=== PATIENT | female | born 1955 | race Caucasian/White ===

== ENCOUNTER 2017-07-11 12:00 | Inpatient (IN) ==
--- NOTE | 2017-07-11 12:29 | Emergency Department Note ---
Disposition Clinical Impression: Degenerative disc disease, lumbar Back pain Qualifiers: Back pain location: low back pain Chronicity: acute Back pain laterality: right Sciatica presence: unspecified whether sciatica present Qualified Code(s) : M54.5 - Low back pain Disposition: Admitted As Inpatient Condition: Fair Time of Disposition: 12:32 Back Pain HPI - General Chief Complaint: ED Back Pain/Injury Stated Complaint: BACK PAIN Time Seen by Provider: 07/11/17 12:13 Source: patient Limitations: no limitations Nursing Notes Reviewed: Yes Vital Signs Reviewed: Yes - History of Present Illness HPI Narrative: Nontoxic 61-year-old female presents for low back pain the radiates into the right lower extremity. Pain began 3-4 days ago and has gradually worsened. The pain is to the point that "I have fallen several times because it hurts so bad". She also c/o 3-4 months of progressively worsening difficulty initiating a stream of urine. She also c/o a degree of saddle anesthesia. She denies any loss of bowel or bladder control. She has taken her regularly prescribed percocet at home without relief of symptoms. - Related Data Previous Rx's Medication Instructions Recorded Diazepam [Valium] 5 mg PO TID PRN #7 tablet 04/08/15 Allergies Allergy/AdvReac Type Severity Reaction Status Date / Time sulfamethoxazole Allergy Seizure Verified 04/08/15 20:31 [From Bactrim] trimethoprim [From Bactrim] Allergy Seizure Verified 04/08/15 20:32 All systems ED: reviewed and negative except as stated. Constitutional: Denies: fever, chills, weakness, weight change Eyes: Denies: eye pain, eye discharge, vision change ENT ED: Denies: ear pain, throat pain, dental pain, hearing loss, epistaxis, congestion, dysphagia Cardiovascular: Denies: chest pain, palpitations, dyspnea on exertion, edema, syncope Respiratory: Denies: cough, dyspnea, wheezes, hemoptysis, stridor Gastrointestinal: Denies: abdominal pain, nausea, vomiting, diarrhea, constipation, hematemesis, melena, hematochezia Genitourinary: Reports: as per HPI, other (urinary retention). Denies: dysuria , frequency, hematuria, discharge Musculoskeletal: Reports: as per HPI, back pain. Denies: neck pain, arthralgia , myalgia Integumentary: Denies: rash, abrasion, lesions Neurological: Reports: as per HPI, paresthesias (inner thighs). Denies: headache, weakness, numbness, confusion, abnormal gait, vertigo Psychiatric: Denies: anxiety, depression, suicidal thoughts, homicidal thoughts , auditory hallucinations, visual hallucinations Endocrine: Denies: fatigue Hematological/Lymphatic: Denies: easy bleeding, easy bruising Allergic/Immunologic: Denies: facial swelling, urticaria Past Medical History - Past Medical History Attestation: Yes The following information was validated with the patient. Source: patient, nursing notes reviewed Medical history: Reports: COPD, diabetes, hypertension Surgical history: Reports: appendectomy, cholecystectomy, hysterectomy Psychiatric history: Reports: depression - Social History Smoking Status: Never smoker Smokeless Tobacco Status: No Alcohol use: Reports: none Drug use: Reports: none Physical Exam - General Limitations: no limitations General appearance: alert - Head Head exam: atraumatic, normocephalic, normal inspection - Eye Eye exam: Present: normal appearance, PERRL, EOMI. Absent: nystagmus - ENT ENT exam: mucous membranes moist - Neck Neck exam: Present: normal inspection, full ROM, trachea midline - Chest Chest inspection: Present: normal inspection, symmetric chest wall rise - Abdominal Exam Abdominal exam: Present: soft, Non-Tender - Extremities Exam Extremities exam: Present: normal inspection, full ROM. Absent: tenderness, pedal edema - Expanded Lower Extremity Exam Neurovascular/Tendon exam: Present: normal capillary refill. Absent: pulse deficit, tendon deficit, extremity cold to touch - Back Exam Back exam: Present: tenderness, paraspinal tenderness (right lumbar paraspinal musculature), vertebral tenderness (lumbar), sciatic notch tenderness (R), straight leg raise (R), straight leg raise (L). Absent: full ROM (painful ROM from lumbar spine), CVA tenderness (R), CVA tenderness (L), muscle spasm, sciatic notch tenderness (L) - Neurological Exam Neurological exam: Present: alert, oriented X3 - Expanded Neurological Exam Motor strength - LUE: 5/5 Motor strength - RUE: 5/5 Motor strength - LLE: 5/5 Motor strength - RLE: 5/5 DTR: patellar (L): 1+, patellar (R): 1+ Coma Scale Eye Opening: Spontaneous Coma Scale Motor Response: Obeys Commands Coma Scale Verbal Response: Oriented Coma Scale Total: 15 - Psychiatric Psychiatric exam: Present: normal affect, normal mood - Skin Skin exam: Present: warm, dry, intact, normal color. Absent: rash Course - Reevaluation(s) Reevaluation #1: 61-year-old female who comes in with lower back pain radiation to right leg that is severe in nature. She has shows some difficulty initiating urine stream and also complained of some anesthesia perineal region. Patient has a spinal cord stimulator is not able to have an MRI, CT scan does show disc bulges at L3- 4 and 45. No significant central stenosis. Patient will be admitted of spine surgery evaluation. Saturation for a myelogram. Time: 14:21 Reevaluation #2: Bladder scan shows 15 mL of urine Time: 14:47 - Consultations Consultation #1: Discussed with Dr. Roque were going to admit to the hospitalist with consult to him. Time: 14:10 Consultation #2: Discussed with Dr. Bell, admit. Time: 14:21 Vital Signs Temperature 97.3 F L 07/11/17 12:02 Pulse Rate 76 07/11/17 12:02 Respiratory Rate 18 07/11/17 12:02 Blood Pressure 170/79 07/11/17 12:02 O2 Sat by Pulse Oximetry 100 07/11/17 12:02 Temperature 97.3 F L 07/11/17 12:02 Pulse Rate 73 07/11/17 14:30 Respiratory Rate 18 07/11/17 14:30 Blood Pressure 137/71 07/11/17 14:30 O2 Sat by Pulse Oximetry 98 07/11/17 14:30 Oxygen Delivery Oxygen Delivery Room Air Back Pain/Injury - Medical Records Medical records reviewed: Yes I reviewed the patient's medical records. - Lab Data Result diagrams: 07/11/17 14:35 Lab Results 07/11/17 Range/Units 14:35 WBC 6.7 (4.3-11.1) K/mcL RBC 4.65 (3.82-4.97) M/mcL Hgb 12.2 (11.5-15.4) g/dL Hct 37.7 (35.3-44.9) % MCV 81.1 L (83.0-100.0) fL MCH 26.2 L (28.0-33.3) pg MCHC 32.4 (31.6-35.5) g/dL RDW 14.3 (11.5-14.5) % Plt Count 143 (140-400) K/mcL MPV 10.4 (9.4-12.4) fL Immature Gran % 0.3 (0-4) % Seg Neutrophils % 68.1 % Lymphocytes % 23.7 % Monocytes % 4.9 % Eosinophils % 2.7 % Basophils % 0.3 % Neutrophils # 4.6 (1.6-8.9) K/mcL Lymphocytes # 1.6 (0.6-4.6) K/mcL Monocytes # 0.3 (0.0-1.3) K/mcL Eosinophils # 0.2 (0.0-0.6) K/mcL Basophils # 0.0 (0.0-0.2) K/mcL - Radiology Data Radiology results reviewed: Yes I reviewed the patient's radiology results. Lumbar Spine CT 07/11/17 12:32 IMPRESSION: Mild multilevel disc degenerative changes of the lumbar spine, most prominent at L3-4 and L4-5. No evidence of severe spinal canal stenosis. Mild bilateral neural foraminal narrowing noted at L3-4 and L4-5, as described above. No acute fracture or malalignment. Transitional anatomy with sacralization of L5. Spinal stimulator leads are noted. D/ / 07/11/2017 13:28:55 Justin Mendoza MD / [email or web address] Interpreting Provider: Justin Mendoza MD S.B.A.RJacquelin - S.B.A.Madeline Situation: Demographics, MOA Background: Presenting Complaint, Relevant PMH, Meds, & Allergies Assessment: Vital Signs, Course and respsone to treatment, Exam Concerns, Patient/Family Expectation, Pertinant Lab Results, Outstanding Labs Recommendation: Barrier(s) to disposition, Recommendation based on pending studies, treatments, or consults S.B.AFord Report Given to: Dr. Sary Wadsworth Repor Time: 12:31 Attestation Statement - Attestation Attestation: For this encounter, I have reviewed the LUNCHROOM ATTENDANT or PA documentation, treatment plan, and medical decision making; and I have had face to face time with this patient. Patient presents with lower back pain with radiation the right leg. States her left right leg gives out at times. She complains of difficulty initiating urine stream. Some saddle anesthesia. Patient does have a spinal cord stimulator which prevents MRI. Physical examination her strength appears to be intact. CT scan of the back shows degenerative disc disease with some mild stenosis at L3-4 L4-5. Consultation obtained with back surgery who will see the patient in consult will admit patient for further evaluation.
[2017-07-11] MEDS ORDERED: Ketorolac 15 MG/ML VIAL IM ONE (12:36)
[2017-07-11] MEDS ORDERED: Orphenadrine 60 MG/2 ML VIAL IM ONE (12:36)
[2017-07-11] MEDS ORDERED: Naloxone 0.4 MG/ML INJ IVP PRN (14:26)
[2017-07-11 14:43] LABS: Basophils % 0.3 %; Eosinophils # 0.2 K/mcL (0.0-0.6); Eosinophils % 2.7 %; Hematocrit 37.7 % (35.3-44.9); Hemoglobin 12.2 g/dL (11.5-15.4); Immature Granulocytes % 0.3 % (0-4); Lymphocytes # 1.6 K/mcL (0.6-4.6); Lymphocytes % 23.7 %; Mean Corpuscular HGB Conc 32.4 g/dL (31.6-35.5); Mean Corpuscular Hemoglobin 26.2 pg (28.0-33.3); Mean Corpuscular Volume 81.1 fL (83.0-100.0); Mean Platelet Volume 10.4 fL (9.4-12.4); Monocytes # 0.3 K/mcL (0.0-1.3); Monocytes % 4.9 %; Neutrophils # 4.6 K/mcL (1.6-8.9); Platelet Count 143 K/mcL (140-400); Red Blood Count 4.65 M/mcL (3.82-4.97); Red Cell Distribution Width 14.3 % (11.5-14.5); Segmented Neutrophils % 68.1 %
[2017-07-11 14:54] LABS: Calcium 8.7 mg/dL (8.6-10.3); Carbon Dioxide 30 mEq/L (23-29); Chloride 105 mEq/L (98-107); Potassium 3.8 mEq/L (3.5-5.1); Sodium 140 mEq/L (136-145)
[2017-07-11 15:00] LABS: BUN/Creatinine Ratio 16 (6-26); Blood Urea Nitrogen 12 mg/dL (8-23); Glucose 183 mg/dL (70-105); Osmolality,Calculated 294 (280-300); eGFR For African Americans > 60 (> 60); eGFR For Non-African Americans > 60 (> 60)
[2017-07-11] MEDS ORDERED: *HR* Dextrose 50 % in Water (Syg) 50 ML SYRINGE IVP PRN (15:03)
[2017-07-11] MEDS ORDERED: Dextrose Gel 15 GM/37.5 ML TUBE PO PRN ×2 (15:03)
[2017-07-11] MEDS ORDERED: D5% in Water 1,000 ML IVC PRN (15:03)
--- NOTE | 2017-07-11 15:12 | Internal Med History&Physical ---
Date of Encounter: 07/11/17 Time of Encounter: 15:08 Assessment and Plan (1) Back pain Current visit: Yes Status: Acute Admit the patient to the hospitalist service. No urinary or bowel incontinence. Good rectal tone examination. Continue with pain control. Spoke to Dr. Roque who recommended against using steroids for now. Make the patient nothing by mouth in case of any surgical needs. Check an EKG for preop purposes. Check hemoglobin A1c, vitamin B12 levels, TSH. Qualifiers: Back pain location: low back pain Chronicity: acute Back pain laterality : right Sciatica presence: unspecified whether sciatica present Qualified Code(s): M54.5 - Low back pain (2) Degenerative disc disease, lumbar Current visit: Yes Status: Acute Plan is as above. (3) Hypertension Current visit: Yes Status: Acute Continue home meds. Blood pressure stable. Qualifiers: Hypertension type: essential hypertension Qualified Code(s): I10 - Essential (primary) hypertension (4) CAD (coronary artery disease) Current visit: Yes Status: Acute Continue cardiac meds. Hold aspirin and Plavix for now. Not sure if she is taking those but she tells me she does. Last the pharmacist to help us with medication list. We will hold those medications if she is on them for now. Continue the rest of the cardiac meds including the beta autumn. Qualifiers: Coronary Disease-Associated Artery/Lesion type: [place] artery [place] vs. transplanted heart: [place] heart Associated angina: without angina Qualified Code(s): I25.10 - Atherosclerotic heart disease of [place] coronary artery without angina pectoris (5) Diabetes mellitus Current visit: Yes Status: Acute We will put the patient on insulin sliding scale for now. Continue with Accu- Cheks. Check hemoglobin A1c. Qualifiers: Diabetes mellitus type: type 2 Diabetes mellitus complication status: without complication Diabetes mellitus technician terminal and repeater insulin use: with assisted use Qualified Code(s): E11.9 - Type 2 diabetes mellitus without complications ; Z79.4 - equipment operator intermodal yard (current) use of insulin; Z79.4 - [facility] (current) use of insulin; Z79.4 - equipment operator intermodal yard (current) use of insulin; Z79.4 - equipment operator intermodal yard ( current) use of insulin (6) DVT prophylaxis Current visit: Yes Status: Acute Heparin subcutaneous Internal Medicine - H&P: HPI Chief complaint: Back pain Admitted From: Home Plans for Post Hospital Care: Home History of present illness: Ms. Davis is a 61 year old female with a history of chronic back pain with a spinal stimulator device that she says is not working, hypertension, diabetes mellitus, coronary artery disease with no stents, and peripheral neuropathy who presented to us on 07/11/2017 with complaints of worsening back pain as well as feeling of weakness with some numbness and tingling mainly on the right lower extremity that is above baseline. The patient tells me that the pain is made better by leaning forward. She has noticed that the pain has started about 3-4 days ago with no triggering event. She has been able to hold her bowels. She has noticed that she is having difficulties initiating his urinary stream and she feels that she is not able to empty completely. At bedside bladder scan showed that she only had 15 mL. She denies any headache blurry vision nausea vomiting chest pain shortness of breath abdominal pain upper extremity weakness or numbness. When she presented to the emergency department she underwent a laboratory workup that was mostly unremarkable. She underwent a CT lumbar spine which showed mild multilevel disc degenerative changes that is most prominent at L3-L4 and L4-L5 levels. There is mild bilateral neural foraminal narrowing noted at L3-L4 and L4-L5. They did mention that there is a broad based disc bulge at those levels. The patient is being admitted to the hospitalist service with a consult to spinal/orthopedics. Past Med Surg Social Fam HX - Past Medical History Medical history: COPD, diabetes, hypertension Psychiatric history: depression - Past Surgical History Surgical History: appendectomy, cholecystectomy, hysterectomy - Social History Smoking Status: Never smoker Smokeless Tobacco Status: No Alcohol use: none Drug use: none Internal Medicine - H&P: Meds Aspirin Enteric Coated [Aspirin EC] 81 mg PO DAILY 07/11/17 [History] Cholecalciferol (Vitamin D3) [Vitamin D] 1,000 unit PO DAILY 07/11/17 [History] Exenatide Microspheres [Bydureon Pen] 2 mg SQ MO 07/11/17 [History] Insulin ASPART [Novolog Flexpen] 40 unit SQ TIDWM 07/11/17 [History] Insulin Degludec [Tresiba Flextouch U-200] 80 unit SQ QAM 07/11/17 [History] Isosorbide MONOnitrate (24 HR) [Imdur] 60 mg PO DAILY 07/11/17 [History] Metoprolol Tartrate [Metoprolol Tartrate] 100 mg PO BID 07/11/17 [History] Oxycodone HCl [Oxycodone HCl] 15 mg PO QID PRN 07/11/17 [History] Pantoprazole Sodium [Protonix] 40 mg PO DAILY 07/11/17 [History] Pregabalin [Lyrica] 150 mg PO TID 07/11/17 [History] Sertraline [Zoloft] 150 mg PO DAILY 07/11/17 [History] amLODIPine [Norvasc] 5 mg PO DAILY 07/11/17 [History] hydrOXYzine HCl [Hydroxyzine HCl] 25 mg PO TID 07/11/17 [History] metFORMIN [Glucophage] 1,000 mg PO BID 07/11/17 [History] 3 Allergy/AdvReac Type Severity Reaction Status Date / Time sulfamethoxazole Allergy Seizure Verified 04/08/15 20:31 [From Bactrim] trimethoprim [From Bactrim] Allergy Seizure Verified 04/08/15 20:32 All Systems PM: A 10-system review of systems was performed and is negative for pertinent findings except as documented above in the HPI. Review of systems: All systems reviewed are negative except as mentioned above - Constitutional Vitals: Temp Pulse Resp BP Pulse Ox 97.3 F L 73 18 137/71 98 07/11/17 12:02 07/11/17 14:30 07/11/17 14:30 07/11/17 14:30 07/11/17 14:30 Exam: GEN: NAD HEENT: AT, NC, No cyanosis, oral mucosa is moist, No JVD Lymphatics: No lymphadenoapthy Eyes: Extrocular muscles intact, anicteric CVS:RRR. S1, S2, No m/r/g RESP: CTAB ABD: Soft, NT, ND, +BS EXT: No edema, No rashes, 2+ DP NEURO: Cranial 2 through 12 are intact. The patient has a positive straight leg raise test on the right. She does have some sensory deficits with pinprick testing in the lower extremities from the feet elevated and knees bilaterally. More so on the right than it is on the left. She felt the pricks pressures. She has good rectal tone. Psych: Cooperative, Not anxious or depressed Internal Med - H&P Results - Labs CBC & Chem 7: 07/11/17 14:35 07/11/17 14:35
[2017-07-11] MEDS ORDERED: *HR* HYDROmorphone 2 MG TABLET PO PRN (15:23)
[2017-07-11] MEDS ORDERED: Baclofen 10 MG TABLET PO PRN (15:23)
[2017-07-11 15:33] LABS: Hemoglobin A1C 10.5 %
[2017-07-11] MEDS: Insulin LISPRO 300 UNITS/3 ML VIAL SQ SCH ×2 (17:30→23:33)
[2017-07-11] MEDS: Pregabalin 75 MG CAPSULE PO SCH (20:03)
[2017-07-11] MEDS: Metoprolol 100 MG TABLET PO SCH (20:03)
[2017-07-11] MEDS: *HR* OxyCODONE/APAP 10/325 TABLET PO PRN (20:03)
[2017-07-11] MEDS: hydrOXYzine pamoate 25 MG CAPSULE PO SCH (20:03)
[2017-07-11] MEDS: *HR* Heparin 5,000 UNIT/ML VIAL SQ SCH (23:24)
[2017-07-11] MEDS: Ketorolac 15 MG/ML VIAL IVP PRN (23:31)
[2017-07-12 04:11] LABS: Basophils % 0.4 %; Eosinophils # 0.2 K/mcL (0.0-0.6); Hematocrit 37.5 % (35.3-44.9); Hemoglobin 12.1 g/dL (11.5-15.4); Immature Granulocytes % 0.4 % (0-4); Lymphocytes # 2.4 K/mcL (0.6-4.6); Lymphocytes % 33.4 %; Mean Corpuscular HGB Conc 32.3 g/dL (31.6-35.5); Mean Corpuscular Hemoglobin 26.2 pg (28.0-33.3); Mean Corpuscular Volume 81.2 fL (83.0-100.0); Mean Platelet Volume 10.5 fL (9.4-12.4); Monocytes # 0.5 K/mcL (0.0-1.3); Monocytes % 6.8 %; Neutrophils # 4.1 K/mcL (1.6-8.9); Platelet Count 141 K/mcL (140-400); Red Blood Count 4.62 M/mcL (3.82-4.97); Red Cell Distribution Width 14.6 % (11.5-14.5)
[2017-07-12] MEDS: *HR* OxyCODONE/APAP 10/325 TABLET PO PRN ×2 (04:50→17:50)
[2017-07-12] MEDS: *HR* Heparin 5,000 UNIT/ML VIAL SQ SCH ×2 (04:51→13:54)
[2017-07-12] MEDS: Insulin LISPRO 300 UNITS/3 ML VIAL SQ SCH ×3 (04:58→17:50)
[2017-07-12] MEDS: Ketorolac 15 MG/ML VIAL IVP PRN ×2 (07:14→13:55)
[2017-07-12] MEDS: Pregabalin 75 MG CAPSULE PO SCH ×2 (08:51→13:56)
[2017-07-12] MEDS: Metoprolol 100 MG TABLET PO SCH (08:51)
[2017-07-12] MEDS: hydrOXYzine pamoate 25 MG CAPSULE PO SCH ×2 (08:51→13:56)
[2017-07-12] MEDS ORDERED: Cholecalciferol (D-3) 1,000 UNIT TABLET PO SCH (09:00)
[2017-07-12] MEDS ORDERED: amLODIPine 5 MG TABLET PO SCH (09:00)
[2017-07-12] MEDS ORDERED: Isosorbide MONOnitrate (24 HR) 60 MG TAB.ER.24H PO SCH (09:00)
--- NOTE | 2017-07-12 11:15 | Discharge Summary ---
Date of Encounter: 07/12/17 Time of Encounter: 11:13 - Discharge Diagnosis (1) Foraminal stenosis of lumbar region Priority: Primary Status: Chronic (2) Lumbar radiculopathy Priority: Primary Status: Chronic (3) Back pain Priority: Primary Status: Acute Qualifiers: Back pain location: low back pain Chronicity: acute Back pain laterality : right Sciatica presence: unspecified whether sciatica present Qualified Code(s): M54.5 - Low back pain (4) Degenerative disc disease, lumbar Priority: Primary Status: Acute (5) Hypertension Priority: Secondary Status: Acute Qualifiers: Hypertension type: essential hypertension Qualified Code(s): I10 - Essential (primary) hypertension (6) CAD (coronary artery disease) Priority: Secondary Status: Acute Qualifiers: Coronary Disease-Associated Artery/Lesion type: [place] artery [place] vs. transplanted heart: [place] heart Associated angina: without angina Qualified Code(s): I25.10 - Atherosclerotic heart disease of [place] coronary artery without angina pectoris (7) Diabetes mellitus Priority: Secondary Status: Acute Qualifiers: Diabetes mellitus type: type 2 Diabetes mellitus complication status: without complication Diabetes mellitus [facility] insulin use: with truck terminal manager use Qualified Code(s): E11.9 - Type 2 diabetes mellitus without complications ; Z79.4 - prison (current) use of insulin; Z79.4 - [place] (current) use of insulin; Z79.4 - prison (current) use of insulin; Z79.4 - [place] ( current) use of insulin (8) Morbid obesity with BMI of 45.0-49.9, adult Priority: Secondary Status: Acute - Discharge Medications Prescriptions: Cyclobenzaprine [Flexeril] 10 mg PO TID #20 tablet Home Medications: Aspirin Enteric Coated [Aspirin EC] 81 mg PO DAILY 07/11/17 [History] Cholecalciferol (Vitamin D3) [Vitamin D3] 1,000 unit PO DAILY 07/11/17 [History] Exenatide Microspheres [Bydureon Pen] 2 mg SQ MO 07/11/17 [History] Insulin ASPART [Novolog Flexpen] 40 unit SQ TIDWM 07/11/17 [History] Insulin Degludec [Tresiba Flextouch U-200] 80 unit SQ QAM 07/11/17 [History] Isosorbide MONOnitrate (24 HR) [Imdur] 60 mg PO DAILY 07/11/17 [History] Metoprolol Tartrate 100 mg PO BID 07/11/17 [History] Oxycodone HCl 15 mg PO QID PRN 07/11/17 [History] Pantoprazole Sodium [Protonix] 40 mg PO DAILY 07/11/17 [History] Pregabalin [Lyrica] 150 mg PO TID 07/11/17 [History] Sertraline [Zoloft] 150 mg PO DAILY 07/11/17 [History] amLODIPine [Norvasc] 5 mg PO DAILY 07/11/17 [History] hydrOXYzine HCl [Hydroxyzine HCl] 25 mg PO TID 07/11/17 [History] metFORMIN [Glucophage] 1,000 mg PO BID 07/11/17 [History] Cyclobenzaprine [Flexeril] 10 mg PO TID #20 tablet 07/12/17 [Rx] Allergies/Adverse Reactions: 3 Allergy/AdvReac Type Severity Reaction Status Date / Time sulfamethoxazole Allergy Seizure Verified 04/08/15 20:31 [From Bactrim] trimethoprim [From Bactrim] Allergy Seizure Verified 04/08/15 20:32 Date of admission: 07/11/17 15:20 Primary care physician: Mickey Francois Consults: 07/11/17 23:50 Consult to Wound Care [CONS] Routine Reason for Consult: Patient has diabetic wounds to 2nd and 3rd toes on left foot that she states she has been dealing with for several weeks now. Please assess and provide daily wound care recommendations. Call Completed: No 07/12/17 08:27 Consult to Occupational Therapy [CONS] Routine Comment: Evaluate, develop and implement POC Reason for Consult: eval and treat Consult to Physical Therapy [CONS] Routine Comment: Evaluate, develop and implement POC Reason for Consult: eval and treat - Patient Status Disposition: Home, Self-Care Overall status at discharge: patient is progressing back to baseline - Discharge Instructions Follow Up With: Rickey Soriano DO [Primary Care Provider] - Erlin Whittington DO [Partnered Physician] - (later this week) - Diet and Activity Activity: increase activity as tolerated Diet: diabetic diet Hospital course: Ms. Davis is a 61 year old female with a history of chronic back pain with a spinal stimulator device that she says is not working, hypertension, diabetes mellitus, coronary artery disease with no stents, and peripheral neuropathy who presented to us on 07/11/2017 with complaints of worsening back pain as well as feeling of weakness with some numbness and tingling mainly on the right lower extremity that is above baseline. The patient stated that the pain is made better by leaning forward. She has noticed that the pain has started about 3-4 days ago with no triggering event. She has been able to hold her bowels. She has noticed that she is having difficulties initiating his urinary stream and she feels that she is not able to empty completely. A bedside bladder scan showed that she only had 15 mL. She denies any headache blurry vision nausea vomiting chest pain shortness of breath abdominal pain upper extremity weakness or numbness. When she presented to the emergency department she underwent a laboratory workup that was mostly unremarkable. She underwent a CT lumbar spine which showed mild multilevel disc degenerative changes that is most prominent at L3-L4 and L4-L5 levels. There is mild bilateral neural foraminal narrowing noted at L3-L4 and L4-L5. They did mention that there is a broad based disc bulge at those levels. She was admitted to the hopitalist service and see by ortho spine Dr. Roque who recommended conservative management. He recommended she follows up with Dr. Espino who she is established with for possible epidural injections if needed. She felt some relief with Flexeril and was given a script for it. Was stable for discharge on 07/12/2017 and was seen by PT who recommended home health aide and a wheeled walker which we set her up with. - Time Spent with Patient Total time spent providing and/or coordinating discharge services: Greater than 30 minutes - Constitutional Vitals: Temp Pulse Resp BP Pulse Ox 98.1 F 75 16 154/80 97 07/12/17 06:58 07/12/17 06:58 07/12/17 06:58 07/12/17 06:58 07/12/17 09:01 Exam: GEN: NAD CVS:RRR. S1, S2, No m/r/g RESP: CTAB ABD: Soft, NT, ND, +BS EXT: No edema, No rashes, 2+ DP NEURO: Cranial 2 through 12 are intact. The patient has a positive straight leg raise test on the right. She does have some sensory deficits with pinprick testing in the lower extremities from the feet elevated and knees bilaterally. More so on the right than it is on the left. She felt the pricks pressures. She has good rectal tone. d - VTE Documentation of Mechanical Device: Intermittent pneumatic compression device
--- NOTE | 2017-07-12 11:31 | Spinal Consult Note ---
Date of Encounter: 07/12/17 Time of Encounter: 07:40 Assessment and Plan (1) Foraminal stenosis of lumbar region Current Visit: Yes Status: Chronic On exam she is lying comfortably in bed in mild distress secondary to right leg and back pain. Afebrile vital signs stable. Her hips move symmetrically. She is grossly neurovascularly intact with regard to her bilateral lower extremities. She has a equivocal straight leg raise on the right. She has no clonus. CT examination of the lumbar spine reveals multilevel degenerative changes. There is moderate foraminal stenosis at L3-4 and L4-5. There is no significant central canal stenosis. Impression: 1) lumbar foraminal stenosis 2) lumbar radiculopathy Plan: The patient should be treated nonoperatively which may include physical therapy until her rehabilitation on an outpatient basis. Recommended proper referral to Dr. Whittington for consideration of additional interventional pain management options. I see no role for surgical intervention at this time. (2) Lumbar radiculopathy Current Visit: Yes Status: Chronic History of Present Illness Chief complaint: Back and right leg pain, difficulty walking HPI: Ms. Davis is a 61 year old female Who has had long-standing back problems who had worsening symptoms with regard to her back pain radiating into the right lower extremity. This interfered with her ability to ambulate and she was brought in via the emergency department for additional care and management. She denies any bowel bladder symptomatology. She states there is some weakness in her legs but is more concerned of the pain. She denies any fevers or chills. She has been treated by Dr. Whittington of interventional pain management in the past her most recent procedure being a medial branch block approximately 1 year ago. We are asked to see regarding CT findings and complaints of back pain with radicular symptomatology. Past Med Surg Social Fam HX - Past Medical History Medical history: COPD, diabetes, hypertension Psychiatric history: anxiety, depression - Past Surgical History Surgical History: appendectomy, cholecystectomy, hysterectomy - Social History Smoking Status: Never smoker Smokeless Tobacco Status: No Alcohol use: none Drug use: none - Family History Daughter Hx Family Endocrine Disorder: Yes (Diabetes) Medications and Allergies Aspirin Enteric Coated [Aspirin EC] 81 mg PO DAILY 07/11/17 [History] Cholecalciferol (Vitamin D3) [Vitamin D3] 1,000 unit PO DAILY 07/11/17 [History] Exenatide Microspheres [Bydureon Pen] 2 mg SQ MO 07/11/17 [History] Insulin ASPART [Novolog Flexpen] 40 unit SQ TIDWM 07/11/17 [History] Insulin Degludec [Tresiba Flextouch U-200] 80 unit SQ QAM 07/11/17 [History] Isosorbide MONOnitrate (24 HR) [Imdur] 60 mg PO DAILY 07/11/17 [History] Metoprolol Tartrate 100 mg PO BID 07/11/17 [History] Oxycodone HCl 15 mg PO QID PRN 07/11/17 [History] Pantoprazole Sodium [Protonix] 40 mg PO DAILY 07/11/17 [History] Pregabalin [Lyrica] 150 mg PO TID 07/11/17 [History] Sertraline [Zoloft] 150 mg PO DAILY 07/11/17 [History] amLODIPine [Norvasc] 5 mg PO DAILY 07/11/17 [History] hydrOXYzine HCl [Hydroxyzine HCl] 25 mg PO TID 07/11/17 [History] metFORMIN [Glucophage] 1,000 mg PO BID 07/11/17 [History] Cyclobenzaprine [Flexeril] 10 mg PO TID #20 tablet 07/12/17 [Rx] OxyCODONE/APAP 10/325 [Percocet 10/325 MG] 1 each PO Q4HR PRN 3 Days #18 tablet 07/12/17 [Rx] 3 Allergy/AdvReac Type Severity Reaction Status Date / Time sulfamethoxazole Allergy Seizure Verified 04/08/15 20:31 [From Bactrim] trimethoprim [From Bactrim] Allergy Seizure Verified 04/08/15 20:32 Results - Labs Result Diagrams: 07/12/17 03:22 07/11/17 14:35 Labs: Abnormal lab results MCV 81.2 fL (83.0-100.0) L 07/12/17 03:22 MCH 26.2 pg (28.0-33.3) L 07/12/17 03:22 RDW 14.6 % (11.5-14.5) H 07/12/17 03:22 ESR 33 mm/hr (0-15) H 07/11/17 14:35 Carbon Dioxide 30 mEq/L (23-29) H 07/11/17 14:35 Glucose 183 mg/dL (70-105) H 07/11/17 14:35 POC Glucose 119 (58-89) H 07/12/17 04:57 Hemoglobin A1c 10.5 % (-5.6) H 07/11/17 14:35 H & H 07/12/17 Range/Units 03:22 Hgb 12.1 (11.5-15.4) g/dL Hct 37.5 (35.3-44.9) % All other labs normal. Consult Discharge Plan - Plan Referrals: Erlin Whittington DO [Partnered Physician] - (later this week) Rickey Soriano DO [Primary Care Provider] - Prescriptions: OxyCODONE/APAP 10/325 [Percocet 10/325 MG] 1 each PO Q4HR PRN 3 Days #18 tablet PRN Reason: Pain Cyclobenzaprine [Flexeril] 10 mg PO TID #20 tablet
[2017-07-12 16:51] VITALS: BP 127/72
--- NOTE | 2017-07-12 17:41 | Physician Discharge Referral ---
Home Health/Hosp Referral Info Transfer to: Home Health - Diagnosis (1) Foraminal stenosis of lumbar region Priority: Primary Status: Chronic (2) Lumbar radiculopathy Priority: Primary Status: Chronic (3) Back pain Priority: Primary Status: Acute (4) Degenerative disc disease, lumbar Priority: Primary Status: Acute (5) Hypertension Priority: Secondary Status: Acute (6) CAD (coronary artery disease) Priority: Secondary Status: Acute (7) Diabetes mellitus Priority: Secondary Status: Acute (8) Morbid obesity with BMI of 45.0-49.9, adult Priority: Secondary Status: Acute - Respiratory Orders Smoking Cessation: Smoking cessation has been advised. For more information, call the [place] Tobacco Quit Line at 5-592-HMWT-NOW. - Services Needed Following services are medically necessary services: Home Health Aide, Physical Therapy, Occupational Therapy - Transfer Medications Prescriptions: Cyclobenzaprine [Flexeril] 10 mg PO TID #20 tablet Home Medications: Aspirin Enteric Coated [Aspirin EC] 81 mg PO DAILY 07/11/17 [History] Cholecalciferol (Vitamin D3) [Vitamin D3] 1,000 unit PO DAILY 07/11/17 [History] Exenatide Microspheres [Bydureon Pen] 2 mg SQ MO 07/11/17 [History] Insulin ASPART [Novolog Flexpen] 40 unit SQ TIDWM 07/11/17 [History] Insulin Degludec [Tresiba Flextouch U-200] 80 unit SQ QAM 07/11/17 [History] Isosorbide MONOnitrate (24 HR) [Imdur] 60 mg PO DAILY 07/11/17 [History] Metoprolol Tartrate 100 mg PO BID 07/11/17 [History] Oxycodone HCl 15 mg PO QID PRN 07/11/17 [History] Pantoprazole Sodium [Protonix] 40 mg PO DAILY 07/11/17 [History] Pregabalin [Lyrica] 150 mg PO TID 07/11/17 [History] Sertraline [Zoloft] 150 mg PO DAILY 07/11/17 [History] amLODIPine [Norvasc] 5 mg PO DAILY 07/11/17 [History] hydrOXYzine HCl [Hydroxyzine HCl] 25 mg PO TID 07/11/17 [History] metFORMIN [Glucophage] 1,000 mg PO BID 07/11/17 [History] Cyclobenzaprine [Flexeril] 10 mg PO TID #20 tablet 07/12/17 [Rx] Allergies/Adverse Reactions: 3 Allergy/AdvReac Type Severity Reaction Status Date / Time sulfamethoxazole Allergy Seizure Verified 04/08/15 20:31 [From Bactrim] trimethoprim [From Bactrim] Allergy Seizure Verified 04/08/15 20:32 Certification: Further, I certify that my clinical findings support that this patient is homebound (i.e. absences from home require considerable and taxing effort and are for medical reasons or quaker services or infrequently or short duration when for other reasons) because: Homebound Reason: Patient requires assistance of a person or device to safely leave home Attestation: My signature below is to certify that this patient is under my care and that I, or nurse practitioner, or a physician's medical support assistant working with me, has a face-to -face encounter with this patient.
== END 2017-07-12 19:17 | disposition home or self-care (01) | DRG 552 ==
LOC: 3NENU 12:00 → EMEROO 12:00 → 3NENU 15:00
PROVIDERS: ADMIT Internal Medicine; ATTEND Hospitalist

== ENCOUNTER 2018-11-20 13:50 | Observation (INO) ==
[2018-11-20] MEDS ORDERED: Ondansetron 4 MG/2 ML VIAL IVP ONE (14:22)
[2018-11-20 15:03] LABS: Bilirubin,Urine Negative (Negative); Blood,Urine Negative (Negative); Clarity,Urine Clear (Clear); Color,Urine Yellow (Yellow); Glucose,Urine (UA) Normal (Normal); Ketones,Urine Negative (Negative); Leukocyte Esterase,Urine Negative (Negative); Nitrite,Urine Negative (Negative); Protein,Urine Negative (Neg-Trace); Specific Gravity,Urine 1.005 (1.010-1.025); Urobilinogen,Urine Normal (Normal)
[2018-11-20 15:10] LABS: Basophils % 0.1 %; Eosinophils # 0.2 K/mcL (0.0-0.6); Eosinophils % 1.8 %; Hematocrit 36.6 % (35.3-44.9); Hemoglobin 11.6 g/dL (11.5-15.4); Immature Granulocytes % 0.1 % (0-4); Lymphocytes # 1.7 K/mcL (0.6-4.6); Lymphocytes % 20.9 %; Mean Corpuscular HGB Conc 31.7 g/dL (31.6-35.5); Mean Corpuscular Hemoglobin 27.1 pg (28.0-33.3); Mean Corpuscular Volume 85.5 fL (83.0-100.0); Monocytes # 0.7 K/mcL (0.0-1.3); Monocytes % 8.2 %; Neutrophils # 5.6 K/mcL (1.6-8.9); Platelet Count 128 K/mcL (140-400); Red Blood Count 4.28 M/mcL (3.82-4.97); Red Cell Distribution Width 15.5 % (11.5-14.5); Segmented Neutrophils % 68.9 %; White Blood Count 8.2 K/mcL (4.3-11.1)
[2018-11-20 15:29] LABS: INR 1.1
[2018-11-20 15:31] LABS: Activated Partial Thrombo Time 36.7 Seconds (26.0-36.0); Alanine Aminotransferase 16 Units/L (7-52); Albumin 3.6 g/dL (3.5-5.7); Albumin/Globulin Ratio 1.2 (1.1-2.2); Alkaline Phosphatase 56 Units/L (34-104); Aspartate Amino Transferase 21 Units/L (13-39); BUN/Creatinine Ratio 17 (6-26); Bilirubin,Direct 0.1 mg/dL (0.0-0.2); Bilirubin,Indirect 0.3 mg/dL (0.0-1.2); Bilirubin,Total 0.4 mg/dL (0.3-1.0); Blood Urea Nitrogen 15 mg/dL (8-23); Calcium 8.6 mg/dL (8.6-10.3); Carbon Dioxide 28 mEq/L (23-29); Chloride 106 mEq/L (98-107); Globulin 3.1 g/dL (2.4-3.5); Glucose 60 mg/dL (70-105); Lipase 19 Units/L (11-82); Osmolality,Calculated 295 (280-300); Potassium 3.7 mEq/L (3.5-5.1); Sodium 143 mEq/L (136-145); Total Protein 6.7 g/dL (6.4-8.9); eGFR For African Americans > 60 (> 60); eGFR For Non-African Americans > 60 (> 60)
[2018-11-20 15:32] LABS: Troponin I < 0.03 ng/mL (< 0.04)
[2018-11-20 17:47] LABS: Magnesium 1.4 mg/dL (1.6-2.6)
[2018-11-20] MEDS ORDERED: Ondansetron 4 MG/2 ML VIAL IVP PRN (18:04)
[2018-11-20] MEDS ORDERED: Naloxone 0.4 MG/ML INJ IVP PRN (18:04)
[2018-11-20] MEDS ORDERED: Dextrose Gel 15 GM/37.5 ML TUBE PO PRN ×2 (18:10)
[2018-11-20] MEDS ORDERED: D5% in Water 1,000 ML IVC PRN (18:10)
[2018-11-20] MEDS ORDERED: *HR* Dextrose 50 % in Water (Syg) 50 ML SYRINGE IVP PRN (18:10)
[2018-11-20 19:41] LABS: Amphetamine Screen,Urine Negative ng/mL (Cutoff=1000); Barbiturate Screen,Urine Negative ng/mL (Cutoff=200); Benzodiazepines Screen,Urine Negative ng/mL (Cutoff=200); Cannabinoid Screen,Urine Negative ng/mL (Cutoff = 50); Cocaine Screen,Urine Negative ng/mL (Cutoff= 300); Opiate Screen,Urine Negative ng/mL (Cutoff=300); Phencyclidine Screen,Urine Negative ng/mL (Cutoff=25)
[2018-11-20] MEDS: Pregabalin 75 MG CAPSULE PO SCH (20:09)
[2018-11-20] MEDS: *HR* Heparin 5,000 UNIT/ML VIAL SQ SCH (20:09)
[2018-11-20] MEDS: Aspirin Enteric Coated 81 MG Tablet PO SCH (20:09)
[2018-11-20] MEDS: hydrOXYzine pamoate 25 MG CAPSULE PO SCH (20:09)
[2018-11-20] MEDS: Metoprolol 100 MG TABLET PO SCH (20:09)
[2018-11-20] MEDS: Insulin LISPRO 300 UNITS/3 ML VIAL SQ SCH (21:27)
[2018-11-21] MEDS: *HR* OxyCODONE Immed Rel 15 MG TABLET PO PRN ×2 (02:24→17:23)
[2018-11-21 03:57] LABS: Chol/HDL Ratio 3.4 (0-4.9); Cholesterol 152 mg/dL (< 200); HDL Cholesterol 45 mg/dL (40-59); LDL Cholesterol,Calculated 85 mg/dL (0-99); Magnesium 1.8 mg/dL (1.6-2.6); Triglycerides 111 mg/dL (< 150)
[2018-11-21 04:11] LABS: Thyroid Stimulating Hormone 3.208 mcIU/mL (0.340-5.600)
[2018-11-21] MEDS: *HR* Heparin 5,000 UNIT/ML VIAL SQ SCH ×2 (06:00→17:29)
[2018-11-21] MEDS ORDERED: Regadenoson 0.4 MG/5 ML SYRINGE IVP ONE (06:22)
[2018-11-21] MEDS ORDERED: Perflutren Lipid Microsphere 1.3 ML in 0.9 % Sodium Chloride 8.7 ML IVP ONE (09:18)
[2018-11-21] MEDS ORDERED: Perflutren Lipid Microsphere 2 ML VIAL ONE (09:22)
[2018-11-21 09:57] LABS: Troponin I < 0.03 ng/mL (< 0.04)
[2018-11-21] MEDS: Insulin LISPRO 300 UNITS/3 ML VIAL SQ SCH ×3 (11:57→20:56)
[2018-11-21] MEDS: hydrOXYzine pamoate 25 MG CAPSULE PO SCH ×3 (12:35→20:55)
[2018-11-21] MEDS: Isosorbide MONOnitrate (24 HR) 60 MG TAB.ER.24H PO SCH (12:35)
[2018-11-21] MEDS: Aspirin Enteric Coated 81 MG Tablet PO SCH (12:36)
[2018-11-21] MEDS: Metoprolol 100 MG TABLET PO SCH ×2 (12:36→20:55)
[2018-11-21] MEDS: Cholecalciferol (D-3) 1,000 UNIT (25MCG) TABLET PO SCH (12:36)
[2018-11-21] MEDS: Pregabalin 75 MG CAPSULE PO SCH ×3 (12:36→20:56)
[2018-11-21] MEDS: amLODIPine 5 MG TABLET PO SCH (12:36)
[2018-11-22] MEDS: *HR* OxyCODONE Immed Rel 15 MG TABLET PO PRN ×2 (01:39→09:30)
[2018-11-22] MEDS: Acetaminophen 325 MG TABLET PO PRN ×2 (04:35→20:15)
[2018-11-22] MEDS: *HR* Heparin 5,000 UNIT/ML VIAL SQ SCH ×2 (04:36→18:06)
[2018-11-22] MEDS: Cholecalciferol (D-3) 1,000 UNIT (25MCG) TABLET PO SCH (09:29)
[2018-11-22] MEDS: amLODIPine 5 MG TABLET PO SCH (09:29)
[2018-11-22] MEDS: Aspirin Enteric Coated 81 MG Tablet PO SCH (09:29)
[2018-11-22] MEDS: hydrOXYzine pamoate 25 MG CAPSULE PO SCH ×3 (09:29→20:15)
[2018-11-22] MEDS: Isosorbide MONOnitrate (24 HR) 60 MG TAB.ER.24H PO SCH (09:29)
[2018-11-22] MEDS: Metoprolol 100 MG TABLET PO SCH ×2 (09:29→20:16)
[2018-11-22] MEDS: Pregabalin 75 MG CAPSULE PO SCH ×3 (09:29→20:15)
[2018-11-22] MEDS: Insulin LISPRO 300 UNITS/3 ML VIAL SQ SCH ×4 (09:30→20:17)
[2018-11-23] MEDS: *HR* OxyCODONE Immed Rel 15 MG TABLET PO PRN (03:50)
[2018-11-23] MEDS: *HR* Heparin 5,000 UNIT/ML VIAL SQ SCH (05:29)
[2018-11-23] MEDS: amLODIPine 5 MG TABLET PO SCH (07:52)
[2018-11-23] MEDS: Pregabalin 75 MG CAPSULE PO SCH (07:52)
[2018-11-23] MEDS: Cholecalciferol (D-3) 1,000 UNIT (25MCG) TABLET PO SCH (07:52)
[2018-11-23] MEDS: hydrOXYzine pamoate 25 MG CAPSULE PO SCH (07:52)
[2018-11-23] MEDS: Isosorbide MONOnitrate (24 HR) 60 MG TAB.ER.24H PO SCH (07:52)
[2018-11-23] MEDS: Aspirin Enteric Coated 81 MG Tablet PO SCH (07:52)
[2018-11-23] MEDS: Metoprolol 100 MG TABLET PO SCH (07:53)
[2018-11-23] MEDS: Insulin LISPRO 300 UNITS/3 ML VIAL SQ SCH ×2 (07:54→11:59)
[2018-11-23 11:16] VITALS: BP 99/63
== END 2018-11-23 15:08 | disposition home or self-care (01) ==
LOC: 3BNU 13:50 → EMEROOARM 13:50 → SUATTDRO 17:34 → 3BNU 18:00
PROVIDERS: ADMIT Internal Medicine Nephrology; ATTEND Internal Medicine